=== PATIENT | male | born 1955 | race Caucasian/White ===

== ENCOUNTER 2016-04-02 10:07 | Emergency (ER) | payer MEDICARE ==
[~2016-04-02] VITALS: Ht 210.8 cm; Wt 90.6 kg
[2016-04-02] MEDS ORDERED: SULFAMETHOXAZOLE/TRIMETHOPRIM 800-160 MG (SEPTRA DS) TAB PO ONE (11:05)
[2016-04-02] MEDS ORDERED: LIDOCAINE/EPINEPHRINE 2% 1:100,000 (XYLOCAINE) 30 ML VIAL INJ ONE (11:05)
[2016-04-02 12:54] VITALS: BP 111/79
== END 2016-04-02 11:30 | disposition home or self-care (01) ==
LOC: EDUNIT# 10:07 → ED 10:11
DX: E11.628 Type 2 diabetes mellitus with other skin complications (principal); L02.212 Cutaneous abscess of back [any part, except buttock and flank]
CPT/HCPCS: 87070; 87075; 99282; A9270; 10060; 87147; 87186; 99283

== ENCOUNTER → 2016-04-20 | Outpatient (CLI) | payer MEDICARE ==
[2016-04-20 10:37] LABS: BASOPHILS % (AUTO) 1 % (0-2); EOSINOPHILS # (AUTO) 0.3 10^3uL; EOSINOPHILS % (AUTO) 4 % (0-4); MEAN CORPUSCULAR HEMOGLOBIN 28.5 PG (26.0-34.0); MEAN CORPUSCULAR HGB CONC 34.3 g/dL (31.0-37.0); MEAN CORPUSCULAR VOLUME 83 FL (80-100); MEAN PLATELET VOLUME 9.4 FL (6.0-9.5); MONOCYTES # (AUTO) 0.4 X10^3; MONOCYTES % (AUTO) 6 % (3-11); NEUTROPHILS # (AUTO) 3.6 X10^3; NEUTROPHILS % (AUTO) 56 % (51-67); PLATELET COUNT 286 10^3uL (150-450); WHITE BLOOD COUNT 6.32 10^3uL (4.0-11.0)
[2016-04-20 10:39] LABS: BILIRUBIN,URINE Negative (Negative); CLARITY,URINE Clear; COLOR,URINE Yellow; GLUCOSE, URINE (UA) 3+ (Negative); LEUKOCYTE ESTERASE, URINE Negative (Negative); UROBILINOGEN,URINE 0.2 mg/dL (0.2-1.0)
[2016-04-20 11:03] LABS: ALBUMIN 4.5 g/dL (3.4-5.0); ANION GAP 16.6 MEQ/L (3-15); CALCULATED IONIZED CALCIUM 3.8 mg/dL (3.8-4.6); TOTAL PROTEIN 7.5 g/dL (6.4-8.5)
== END ==
LOC: LAB 10:18
PROVIDERS: ATTEND Family Medicine
DX: E11.9 Type 2 diabetes mellitus without complications (principal); E78.4 Other hyperlipidemia
CPT/HCPCS: 36415; 80053; 80061; 81003; 82043; 83036; 85025; 86141